=== PATIENT | male | born 1960 | race African-American/Black ===

== ENCOUNTER 2017-01-16 15:36 | Emergency (ER) | payer MEDICAID ==
[~2017-01-16] VITALS: Ht 172.7 cm; Wt 70.0 kg
[2017-01-16 20:15] VITALS: BP 124/74
== END 2017-01-16 20:43 | disposition home or self-care (01) ==
LOC: ER 16:09
DX: F10.129 Alcohol abuse with intoxication, unspecified (principal); R56.9 Unspecified convulsions; Y90.9 Presence of alcohol in blood, level not specified; Z59.0 Homelessness
CPT/HCPCS: 99284

== ENCOUNTER 2019-08-21 11:25 | Emergency (ER) | payer MEDICAID ==
[~2019-08-21] VITALS: Ht 180.3 cm; Wt 77.1 kg
[2019-08-21] MEDS ORDERED: SODIUM CHLORIDE 0.9% 1,000 ML IV ONE (12:32)
[2019-08-21] MEDS ORDERED: ONDANSETRON HCL 4MG/2ML INJ IV STA (12:32)
[2019-08-21] MEDS ORDERED: KETOROLAC 30MG/ML VIAL IV STA (12:32)
[2019-08-21 13:39] LABS: CLARITY URINE TURBID (CLEAR); COLOR URINE ORANGE (YELLOW); KETONES URINE NEGATIVE (NEGATIVE); LEUKOCYTE ESTERASE URINE 1+ (NEGATIVE); NITRITE URINE POSITIVE (NEGATIVE); OCCULT BLOOD URINE TRACE (NEGATIVE); PH URINE 5.5 (4.5-8.0); PROTEIN URINE 3+ (NEGATIVE); SPECIFIC GRAVITY URINE 1.031 (1.005-1.030)
[2019-08-21 14:06] LABS: *AMPHETAMINES SCREEN URINE NEGATIVE (NEGATIVE)
[2019-08-21 14:07] LABS: *BARBITURATES SCREEN URINE NEGATIVE (NEGATIVE); *BENZODIAZEPINES SCREEN URINE NEGATIVE (NEGATIVE); *COCAINE SCREEN URINE NEGATIVE (NEGATIVE); METHADONE URINE SCREEN NEGATIVE (NEGATIVE); OPIATES URINE SCREEN NEGATIVE (NEGATIVE); PHENCYCLIDINE URINE SCREEN NEGATIVE (NEGATIVE)
[2019-08-21 14:08] LABS: CANNABINOID URINE SCREEN NEGATIVE (NEGATIVE)
[2019-08-21 15:06] LABS: BASOPHILS % 0.6 % (0.0-2.0); EOSINOPHILS % 0.7 % (0.0-5.0); HEMATOCRIT. 37.1 % (42.0-52.0); HEMOGLOBIN. 12.3 g/dL (14.0-18.0); LYMPHOCYTES % 10.5 % (20.0-50.0); MEAN CORPUSCULAR HEMOGLOBIN 31.3 pg (28.0-32.0); MEAN CORPUSCULAR VOLUME 94.2 fL (80.0-94.0); MEAN PLATELET VOLUME 11.7 fl (7.4-10.4); MONOCYTES % 12.1 % (2.0-8.0); NEUTROPHILS % 76.1 % (40.0-76.0); PLATELET 97 x1000/uL (130-400); RED BLOOD CELL COUNT 3.93 mill/uL (4.7-6.1); RED CELL DISTRIBUTION WIDTH 11.2 % (11.6-14.6)
[2019-08-21 15:18] LABS: CHLORIDE 103 mEq/L (98-107)
[2019-08-21 15:22] LABS: ETHANOL BLOOD < 10 mg/dL
[2019-08-21] MEDS ORDERED: POTASSIUM CHLORIDE 20MEQ TABLET SR PO ONE (16:00)
[2019-08-21 16:52] VITALS: BP 132/74
== END 2019-08-21 16:53 | disposition home or self-care (01) ==
LOC: ER 11:25
DX: R41.82 Altered mental status, unspecified (principal)
CPT/HCPCS: 36415; 70450; 80053; 80305; 80320; 81003; 82962; 85025; 96361; 96374; 96375; 99284; J1885; J2405; J7030; G0480

== ENCOUNTER 2019-08-21 18:53 | Inpatient (IN) | payer MEDICAID ==
[~2019-08-21] VITALS: Ht 177.8 cm; Wt 72.6 kg
[2019-08-21] MEDS ORDERED: SODIUM CHLORIDE 0.9% 1,000 ML IV ONE (19:40)
[2019-08-21] MEDS ORDERED: LEVETIRACETAM 1000MG/100ML 100 ML IV ONE (19:45)
[2019-08-21] MEDS ORDERED: LORAZEPAM 2MG/ML CPJ IV ONE ×2 (19:45→23:00)
[2019-08-21 20:12] LABS: HEMATOCRIT. 36.4 % (42.0-52.0); HEMOGLOBIN. 11.9 g/dL (14.0-18.0); MEAN CORPUSCULAR HEMOGLOBIN 30.9 pg (28.0-32.0); MEAN CORPUSCULAR VOLUME 94.3 fL (80.0-94.0); MEAN PLATELET VOLUME 10.4 fl (7.4-10.4); PLATELET 85 x1000/uL (130-400); RED BLOOD CELL COUNT 3.86 mill/uL (4.7-6.1); RED CELL DISTRIBUTION WIDTH 11.3 % (11.6-14.6)
[2019-08-21 20:14] LABS: CHLORIDE 100 mEq/L (98-107); INR 1.1; PROTHROMBIN TIME 11.2 sec (9.6-11.0)
[2019-08-21 20:20] LABS: ETHANOL BLOOD < 10 mg/dL
[2019-08-21 20:23] LABS: CARBAMAZEPINE < 0.5 ug/mL (4-12)
[2019-08-21 20:24] LABS: CREATINE KINASE 306 IU/L (39-308)
[2019-08-21 20:26] LABS: CREATINE KINASE MB FRACTION 2.9 ng/mL (0.5-3.6)
[2019-08-21 20:33] LABS: PHENOBARBITAL < 2.1 ug/mL (15.0-40.0); VALPROIC ACID < 3.0 ug/mL (50-100)
[2019-08-21 20:44] LABS: PLATELET ESTIMATE MARKEDLY DECREASED
[2019-08-21] MEDS ORDERED: FOLIC ACID 1 MG, THIAMINE HCL 100 MG, MVI, ADULT NO.1 10 ML in DEXTROSE 5% WATER 1,000 ML IV ONE ×4 (23:00)
[2019-08-22 00:20] LABS: CLARITY URINE CLEAR (CLEAR); COLOR URINE YELLOW (YELLOW); KETONES URINE NEGATIVE (NEGATIVE); LEUKOCYTE ESTERASE URINE NEGATIVE (NEGATIVE); NITRITE URINE NEGATIVE (NEGATIVE); OCCULT BLOOD URINE NEGATIVE (NEGATIVE); PROTEIN URINE NEGATIVE (NEGATIVE); SPECIFIC GRAVITY URINE 1.004 (1.005-1.030); UROBILINOGEN URINE 0.2 E.U./dL (0.2-1.0)
[2019-08-22 00:41] LABS: *AMPHETAMINES SCREEN URINE NEGATIVE (NEGATIVE); *BARBITURATES SCREEN URINE NEGATIVE (NEGATIVE); *BENZODIAZEPINES SCREEN URINE NEGATIVE (NEGATIVE); *COCAINE SCREEN URINE NEGATIVE (NEGATIVE); METHADONE URINE SCREEN NEGATIVE (NEGATIVE); OPIATES URINE SCREEN NEGATIVE (NEGATIVE); PHENCYCLIDINE URINE SCREEN NEGATIVE (NEGATIVE)
[2019-08-22 00:42] LABS: CANNABINOID URINE SCREEN NEGATIVE (NEGATIVE)
[2019-08-22] MEDS ORDERED: LORAZEPAM 2MG/ML CPJ IV ONE (00:45)
[2019-08-22] MEDS ORDERED: ONDANSETRON HCL 4MG/2ML INJ IV ONE (00:45)
[2019-08-22] MEDS ORDERED: THIAMINE HCL 100 MG/1 ML 2ML VIAL ONE (01:01)
[2019-08-22] MEDS ORDERED: LORAZEPAM 2MG/ML CPJ IV PRN ×2 (02:00→07:45)
[2019-08-22] MEDS ORDERED: DIPHENHYDRAMINE 50MG/ML VIAL IV PRN (07:45)
[2019-08-22] MEDS ORDERED: CLONIDINE 0.1MG TABLET PO PRN (07:45)
[2019-08-22] MEDS ORDERED: ACETAMINOPHEN 325MG TABLET PO PRN (07:45)
[2019-08-22] MEDS ORDERED: GUAIFENESIN 200MG/10ML SUGAR FREE UDC PO PRN (07:45)
[2019-08-22] MEDS ORDERED: IPRATROPIUM/ALBUTEROL 0.5-3(2.5)MG/3ML NEB HHN PRN (07:45)
[2019-08-22] MEDS ORDERED: ONDANSETRON HCL 4MG/2ML INJ IV PRN (07:45)
[2019-08-22] MEDS ORDERED: LEVETIRACETAM 500MG PREMIX 100 ML IV NR (08:45)
[2019-08-22] MEDS ORDERED: POTASSIUM CHLORIDE INJ 40 MEQ in DEXT 5% WATER 250 ML IV NR (10:15)
[2019-08-22 12:00] VITALS: BP_SYST 133; BP_SYST 135; BP_DIAS 62; BP_DIAS 88
[2019-08-22] MEDS: CHLORDIAZEPOXIDE 25MG CAPSULE PO SCH ×2 (14:57→21:33)
[2019-08-22] MEDS ORDERED: INFLUENZA VIRUS VACCINE(AFLURIA) 0.5ML SYR IM ONE (15:30)
[2019-08-22] MEDS ORDERED: PNEUMOCOCCAL 23-VAL P-SAC VAC 0.5 ML IM ONE (15:30)
[2019-08-22 16:00] VITALS: BP 140/86
[2019-08-22 16:54] LABS: PHOSPHORUS 2.6 mg/dL (2.5-4.9)
[2019-08-22 20:00] VITALS: BP 146/85
[2019-08-22 20:01] LABS: TOTAL IRON BINDING CAPACITY 367 ug/dL (250-450)
[2019-08-22] MEDS: LEVETIRACETAM 500MG PREMIX 100 ML IV SCH (21:33)
[2019-08-23] VITALS: BP 130/82
[2019-08-23 04:00] VITALS: BP 151/90
[2019-08-23 05:38] LABS: BASOPHILS % 0.4 % (0.0-2.0); EOSINOPHILS % 1.1 % (0.0-5.0); HEMOGLOBIN. 11.6 g/dL (14.0-18.0); LYMPHOCYTES % 10.9 % (20.0-50.0); MEAN CORPUSCULAR HEMOGLOBIN 31.1 pg (28.0-32.0); MEAN CORPUSCULAR VOLUME 93.6 fL (80.0-94.0); MEAN PLATELET VOLUME 11.3 fl (7.4-10.4); MONOCYTES % 13.3 % (2.0-8.0); NEUTROPHILS % 74.3 % (40.0-76.0); PLATELET 100 x1000/uL (130-400); RED BLOOD CELL COUNT 3.74 mill/uL (4.7-6.1); RED CELL DISTRIBUTION WIDTH 11.4 % (11.6-14.6)
[2019-08-23] MEDS: CHLORDIAZEPOXIDE 25MG CAPSULE PO SCH ×3 (05:42→21:43)
[2019-08-23 06:02] LABS: CHLORIDE 102 mEq/L (98-107)
[2019-08-23 06:11] LABS: LDL CHOLESTEROL 30 mg/dL (5-100)
[2019-08-23 06:13] LABS: HDL CHOLESTEROL 70 mg/dL (40-59)
[2019-08-23 08:00] VITALS: BP 133/89
[2019-08-23] MEDS ORDERED: ENOXAPARIN 40MG/0.4ML SYR SUBCUT SCH (09:00)
[2019-08-23] MEDS: SODIUM CHLORIDE 0.9% 1,000 ML IV SCH ×2 (09:35→17:40)
[2019-08-23] MEDS: LEVETIRACETAM 500MG PREMIX 100 ML IV SCH ×2 (09:54→21:41)
[2019-08-23 12:00] VITALS: BP 118/76
[2019-08-23 16:00] VITALS: BP 150/92
[2019-08-23 20:00] VITALS: BP 143/91
[2019-08-24] VITALS: BP 144/93
[2019-08-24] MEDS: SODIUM CHLORIDE 0.9% 1,000 ML IV SCH ×3 (00:39→16:45)
[2019-08-24 04:00] VITALS: BP 134/72
[2019-08-24] MEDS: CHLORDIAZEPOXIDE 25MG CAPSULE PO SCH ×2 (06:16→13:44)
[2019-08-24 08:00] VITALS: BP 155/92
[2019-08-24] MEDS: LEVETIRACETAM 500MG PREMIX 100 ML IV SCH (08:05)
[2019-08-24 12:00] VITALS: BP 128/83
[2019-08-24 16:00] VITALS: BP 132/83
[2019-08-24] MEDS ORDERED: FOLIC ACID 1MG TABLET PO SCH (16:00)
[2019-08-24] MEDS ORDERED: MULTIVITAMINS,THER W-MINERALS TABLET PO SCH (16:00)
[2019-08-24] MEDS ORDERED: THIAMINE HCL 100MG TABLET PO SCH (16:00)
== END 2019-08-24 18:16 | disposition left against medical advice (07) | DRG 53 ==
LOC: ER 18:53 → 5WST 08-22 01:42 → EDBEDREQTM 08-22 01:44 → EDBEDREQ 08-22 01:44 → ENRESERV 08-22 11:12
PROVIDERS: ADMIT Internal Medicine; ATTEND Internal Medicine
DX: G40.909 Epilepsy, unspecified, not intractable, without status epilepticus (principal); D69.6 Thrombocytopenia, unspecified; D64.9 Anemia, unspecified; E87.6 Hypokalemia; R74.0 Nonspecific elevation of levels of transaminase and lactic acid dehydrogenase [LDH]; F10.10 Alcohol abuse, uncomplicated; I10 Essential (primary) hypertension; E83.51 Hypocalcemia
CPT/HCPCS: 36415; 71045; 80053; 80061; 80156; 80165; 80184; 80185; 80305; 80320; 81003; 82550; 82553; 82728; 83540; 83550; 83735; 84100; 84443; 84484; 85025; 90686; 90732; 93005; 93970; 96365; 99285; J1953; J2060; J2405; J3411; J3480; J3490; J7030; J7060; J7070; A4315; G0480

== ENCOUNTER 2019-10-02 17:21 | Emergency (ER) | payer MEDICAID ==
[~2019-10-02] VITALS: Ht 167.6 cm; Wt 50.0 kg
[2019-10-02] MEDS ORDERED: SODIUM CHLORIDE 0.9% 1,000 ML IV ONE (17:58)
[2019-10-02] MEDS ORDERED: LEVETIRACETAM 1000MG/100ML 100 ML IV ONE (18:00)
[2019-10-02] MEDS ORDERED: LORAZEPAM 2MG/ML CPJ IV ONE (18:00)
[2019-10-02 18:20] LABS: BASOPHILS % 0.6 % (0.0-2.0); CHLORIDE 96 mEq/L (98-107); EOSINOPHILS % 0.6 % (0.0-5.0); HEMOGLOBIN. 11.4 g/dL (14.0-18.0); LYMPHOCYTES % 15.5 % (20.0-50.0); MEAN CORPUSCULAR HEMOGLOBIN 29.7 pg (28.0-32.0); MEAN CORPUSCULAR VOLUME 88.6 fL (80.0-94.0); MEAN PLATELET VOLUME 9.5 fl (7.4-10.4); MONOCYTES % 11.3 % (2.0-8.0); PLATELET 78 x1000/uL (130-400); RED BLOOD CELL COUNT 3.84 mill/uL (4.7-6.1); RED CELL DISTRIBUTION WIDTH 13.5 % (11.6-14.6)
[2019-10-02 18:25] LABS: ETHANOL BLOOD < 10 mg/dL
[2019-10-02 18:29] LABS: CREATINE KINASE 193 IU/L (39-308)
[2019-10-02 18:34] LABS: CARBAMAZEPINE < 0.5 ug/mL (4-12); PHENOBARBITAL < 2.1 ug/mL (15.0-40.0); VALPROIC ACID < 3.0 ug/mL (50-100)
[2019-10-02 21:45] VITALS: BP 138/80
== END 2019-10-02 21:45 | disposition home or self-care (01) ==
LOC: ER 17:21
DX: R56.9 Unspecified convulsions (principal); E86.0 Dehydration; F10.239 Alcohol dependence with withdrawal, unspecified; Y90.0 Blood alcohol level of less than 20 mg/100 ml
CPT/HCPCS: 36415; 80053; 80156; 80165; 80184; 80185; 80320; 82550; 84443; 84484; 85025; 93005; 96365; 96375; 99285; J1953; J2060; J7030; G0480

== ENCOUNTER 2020-02-17 20:10 | Inpatient (IN) | payer MEDICAID ==
[~2020-02-17] VITALS: Ht 177.8 cm; Wt 55.3 kg
[2020-02-17] MEDS ORDERED: SODIUM CHLORIDE 0.9% 1,000 ML IV ONE (21:27)
[2020-02-17 21:43] LABS: CHLORIDE 103 mEq/L (98-107)
[2020-02-17 21:59] LABS: ETHANOL BLOOD 463 mg/dL
[2020-02-17 23:14] LABS: BASOPHILS % 1.2 % (0.0-2.0); EOSINOPHILS % 0.7 % (0.0-5.0); HEMOGLOBIN. 10.3 g/dL (14.0-18.0); LYMPHOCYTES % 20.9 % (20.0-50.0); MEAN CORPUSCULAR VOLUME 83.6 fL (80.0-94.0); MEAN PLATELET VOLUME 8.2 fl (7.4-10.4); NEUTROPHILS % 71.2 % (40.0-76.0); PLATELET 188 x1000/uL (130-400); RED BLOOD CELL COUNT 3.83 mill/uL (4.7-6.1); RED CELL DISTRIBUTION WIDTH 19.7 % (11.6-14.6)
[2020-02-18 00:02] LABS: CLARITY URINE CLEAR (CLEAR); COLOR URINE YELLOW (YELLOW); KETONES URINE NEGATIVE (NEGATIVE); LEUKOCYTE ESTERASE URINE NEGATIVE (NEGATIVE); NITRITE URINE NEGATIVE (NEGATIVE); OCCULT BLOOD URINE NEGATIVE (NEGATIVE); PROTEIN URINE NEGATIVE (NEGATIVE); SPECIFIC GRAVITY URINE 1.012 (1.005-1.030); UROBILINOGEN URINE 0.2 E.U./dL (0.2-1.0)
[2020-02-18 00:29] LABS: *AMPHETAMINES SCREEN URINE NEGATIVE (NEGATIVE); *BARBITURATES SCREEN URINE NEGATIVE (NEGATIVE); *BENZODIAZEPINES SCREEN URINE NEGATIVE (NEGATIVE); *COCAINE SCREEN URINE NEGATIVE (NEGATIVE); METHADONE URINE SCREEN NEGATIVE (NEGATIVE)
[2020-02-18 00:30] LABS: CANNABINOID URINE SCREEN NEGATIVE (NEGATIVE); OPIATES URINE SCREEN NEGATIVE (NEGATIVE); PHENCYCLIDINE URINE SCREEN NEGATIVE (NEGATIVE)
[2020-02-18 03:40] VITALS: BP 145/80
[2020-02-18 04:00] VITALS: BP 145/80
[2020-02-18] MEDS ORDERED: ONDANSETRON HCL 4MG/2ML INJ IV PRN (05:15)
[2020-02-18] MEDS ORDERED: ACETAMINOPHEN 325MG TABLET PO PRN (05:15)
[2020-02-18] MEDS ORDERED: LORAZEPAM 2MG/ML CPJ IV PRN (05:15)
[2020-02-18] MEDS: DEXT 5%/0.45% NACL 1000ML 1,000 ML IV SCH ×2 (05:55→15:57)
[2020-02-18] MEDS: CHLORDIAZEPOXIDE 25MG CAPSULE PO SCH ×3 (05:55→21:32)
[2020-02-18 07:50] VITALS: BP 138/81
[2020-02-18] MEDS: FAMOTIDINE 20MG TABLET PO SCH ×2 (08:18→21:32)
[2020-02-18] MEDS: FOLIC ACID 1MG TABLET PO SCH (08:18)
[2020-02-18] MEDS: MULTIVITAMINS,THER W-MINERALS TABLET PO SCH (08:18)
[2020-02-18] MEDS: THIAMINE HCL 100MG TABLET PO SCH (08:20)
[2020-02-18 12:00] VITALS: BP 135/80
[2020-02-18] MEDS ORDERED: METOPROLOL TARTRATE 50MG TABLET PO NR (14:15)
[2020-02-18 20:00] VITALS: BP 138/80
[2020-02-18] MEDS: METOPROLOL TARTRATE 50MG TABLET PO SCH (21:32)
[2020-02-19] VITALS: BP 141/79
[2020-02-19] MEDS: DEXT 5%/0.45% NACL 1000ML 1,000 ML IV SCH ×2 (01:19→12:00)
[2020-02-19 04:00] VITALS: BP 142/80
[2020-02-19] MEDS: CHLORDIAZEPOXIDE 25MG CAPSULE PO SCH ×2 (05:38→14:06)
[2020-02-19 06:56] LABS: BASOPHILS % 0.9 % (0.0-2.0); EOSINOPHILS % 1.1 % (0.0-5.0); HEMATOCRIT. 34.5 % (42.0-52.0); HEMOGLOBIN. 11.2 g/dL (14.0-18.0); LYMPHOCYTES % 14.5 % (20.0-50.0); MEAN CORPUSCULAR HEMOGLOBIN 27.3 pg (28.0-32.0); MEAN CORPUSCULAR VOLUME 84.1 fL (80.0-94.0); MEAN PLATELET VOLUME 9.5 fl (7.4-10.4); MONOCYTES % 5.4 % (2.0-8.0); NEUTROPHILS % 78.1 % (40.0-76.0); PLATELET 176 x1000/uL (130-400)
[2020-02-19 07:11] LABS: CHLORIDE 98 mEq/L (98-107)
[2020-02-19 07:28] LABS: PHOSPHORUS 3.6 mg/dL (2.5-4.9)
[2020-02-19 08:00] VITALS: BP 145/86
[2020-02-19] MEDS: FAMOTIDINE 20MG TABLET PO SCH (08:08)
[2020-02-19] MEDS: METOPROLOL TARTRATE 50MG TABLET PO SCH (08:09)
[2020-02-19] MEDS: MULTIVITAMINS,THER W-MINERALS TABLET PO SCH (08:09)
[2020-02-19] MEDS: FOLIC ACID 1MG TABLET PO SCH (08:09)
[2020-02-19] MEDS: THIAMINE HCL 100MG TABLET PO SCH (08:09)
[2020-02-19 12:00] VITALS: BP 130/78
[2020-02-19 16:51] VITALS: BP 135/85
[2020-02-19 17:29] VITALS: BP 135/85
== END 2020-02-19 18:15 | disposition home or self-care (01) | DRG 775 ==
LOC: ER 20:10 → 8WST 02-18 00:49 → EDBEDREQDT 02-18 00:50 → EDBEDREQTM 02-18 00:50 → EDBEDREQ 02-18 00:50 → ENRESERV 02-18 02:26 → CANRESERV 02-18 02:26 → ENRESERV 02-18 02:57 → 8WST 02-18 04:44
PROVIDERS: ADMIT Internal Medicine; ATTEND Internal Medicine
DX: F10.229 Alcohol dependence with intoxication, unspecified (principal); F10.239 Alcohol dependence with withdrawal, unspecified; Y90.8 Blood alcohol level of 240 mg/100 ml or more; D64.9 Anemia, unspecified; L89.890 Pressure ulcer of other site, unstageable; E87.2 Acidosis; L89.106 Pressure-induced deep tissue damage of unspecified part of back; F17.210 Nicotine dependence, cigarettes, uncomplicated; F17.200 Nicotine dependence, unspecified, uncomplicated; G40.909 Epilepsy, unspecified, not intractable, without status epilepticus; Y93.01 Activity, walking, marching and hiking; Z82.49 Family history of ischemic heart disease and other diseases of the circulatory system; Z59.0 Homelessness
CPT/HCPCS: 36415; 71045; 80048; 80053; 80305; 80320; 81003; 82040; 83605; 83735; 84100; 84134; 84484; 85025; 93005; 93923; 99285; J7030; G0480

== ENCOUNTER 2020-03-08 23:15 | Inpatient (IN) | payer MEDICAID ==
[~2020-03-08] VITALS: Ht 182.9 cm; Wt 49.5 kg
[2020-03-08] MEDS ORDERED: SODIUM CHLORIDE 0.9% 1,000 ML IV ONE (23:27)
[2020-03-08] MEDS ORDERED: TETANUS, DIPHTHERIA, PERTUSSIS VAC/PF 0.5ML (>7YR OLD) IM ONE (23:30)
[2020-03-08] MEDS ORDERED: LIDOCAINE HCL/PF 1% 10 MG/ML 5ML VIAL IJ ONE (23:30)
[2020-03-08] MEDS ORDERED: BACITRACIN ZINC OINT UDPKT TOP ONE (23:30)
[2020-03-08] MEDS ORDERED: ONDANSETRON HCL 4MG/2ML INJ IV ONE (23:30)
[2020-03-09] VITALS (9 sets, daily range): BP systolic 128–153; BP diastolic 76–100
[2020-03-09] MEDS ORDERED: PIPERACILLIN/TAZ 3.375G PREMIX 50 ML IV ONE
[2020-03-09] MEDS ORDERED: VANCOMYCIN 1 G PREMIX 200 ML IV ONE
[2020-03-09 00:03] LABS: BASOPHILS % 2.4 % (0.0-2.0); EOSINOPHILS % 5.3 % (0.0-5.0); HEMATOCRIT. 35.8 % (42.0-52.0); HEMOGLOBIN. 11.6 g/dL (14.0-18.0); LYMPHOCYTES % 34.6 % (20.0-50.0); MEAN CORPUSCULAR VOLUME 86.7 fL (80.0-94.0); MEAN PLATELET VOLUME 8.3 fl (7.4-10.4); MONOCYTES % 5.8 % (2.0-8.0); NEUTROPHILS % 51.9 % (40.0-76.0); PLATELET 282 x1000/uL (130-400); RED BLOOD CELL COUNT 4.13 mill/uL (4.7-6.1); RED CELL DISTRIBUTION WIDTH 18.9 % (11.6-14.6)
[2020-03-09 00:09] LABS: CHLORIDE 106 mEq/L (98-107)
[2020-03-09 00:19] LABS: VALPROIC ACID <3.0 ug/mL ug/mL (50-100)
[2020-03-09 00:28] LABS: CARBAMAZEPINE < 0.5 ug/mL (4-12); PHENOBARBITAL < 2.1 ug/mL (15.0-40.0)
[2020-03-09 00:29] LABS: ETHANOL BLOOD 490 mg/dL
[2020-03-09] MEDS ORDERED: KCL 10MEQ/50ML PREMIX 50 ML IV ONE (00:45)
[2020-03-09] MEDS ORDERED: SODIUM CHLORIDE 0.9% 1000ML BAG (SEPSIS BOLUS) IV ONE (07:30)
[2020-03-09] MEDS ORDERED: ONDANSETRON HCL 4MG/2ML INJ IV PRN (10:30)
[2020-03-09] MEDS ORDERED: LORAZEPAM 2MG/ML CPJ IV PRN (10:30)
[2020-03-09] MEDS ORDERED: FOLIC ACID 1 MG, THIAMINE HCL 100 MG, MVI, ADULT NO.1 10 ML in DEXTROSE 5% WATER 1,000 ML IV NR ×4 (12:00)
[2020-03-09] MEDS: CHLORDIAZEPOXIDE 25MG CAPSULE PO SCH ×2 (13:14→20:45)
[2020-03-10] VITALS (9 sets, daily range): BP systolic 136–153; BP diastolic 83–96
[2020-03-10 01:02] LABS: CLARITY URINE CLEAR (CLEAR); COLOR URINE YELLOW (YELLOW); KETONES URINE NEGATIVE (NEGATIVE); LEUKOCYTE ESTERASE URINE NEGATIVE (NEGATIVE); NITRITE URINE NEGATIVE (NEGATIVE); OCCULT BLOOD URINE NEGATIVE (NEGATIVE); PROTEIN URINE NEGATIVE (NEGATIVE); SPECIFIC GRAVITY URINE 1.017 (1.005-1.030); UROBILINOGEN URINE 0.2 E.U./dL (0.2-1.0)
[2020-03-10] MEDS: CHLORDIAZEPOXIDE 25MG CAPSULE PO SCH ×3 (06:21→21:08)
[2020-03-10 07:11] LABS: BASOPHILS % 1.7 % (0.0-2.0); EOSINOPHILS % 4.8 % (0.0-5.0); HEMATOCRIT. 31.5 % (42.0-52.0); HEMOGLOBIN. 10.2 g/dL (14.0-18.0); MEAN CORPUSCULAR HEMOGLOBIN 28.2 pg (28.0-32.0); MEAN CORPUSCULAR VOLUME 87.1 fL (80.0-94.0); MEAN PLATELET VOLUME 9.2 fl (7.4-10.4); MONOCYTES % 6.3 % (2.0-8.0); NEUTROPHILS % 67.2 % (40.0-76.0); PLATELET 178 x1000/uL (130-400); RED BLOOD CELL COUNT 3.61 mill/uL (4.7-6.1); RED CELL DISTRIBUTION WIDTH 18.7 % (11.6-14.6)
[2020-03-10 07:27] LABS: CHLORIDE 102 mEq/L (98-107)
[2020-03-10 07:41] LABS: PHOSPHORUS 3.1 mg/dL (2.5-4.9)
[2020-03-10] MEDS ORDERED: MAGNESIUM 4 G PREMIX 100 ML IV NR (14:00)
[2020-03-11] VITALS (12 sets, daily range): BP systolic 129–163; BP diastolic 69–114
[2020-03-11 04:07] LABS: HIV SCREEN 4G Non Reactive (Non Reactive)
[2020-03-11] MEDS: CHLORDIAZEPOXIDE 25MG CAPSULE PO SCH ×3 (05:00→21:16)
[2020-03-12] VITALS (9 sets, daily range): BP systolic 133–149; BP diastolic 86–104
[2020-03-12] MEDS: CHLORDIAZEPOXIDE 25MG CAPSULE PO SCH ×2 (06:03→13:40)
== END 2020-03-12 15:01 | DRG 775 ==
LOC: ER 23:34 → EDBEDREQ 03-09 00:09 → 5EST 03-09 01:16 → EDBEDREQTM 03-09 01:28 → EDBEDREQ 03-09 01:28 → ENRESERV 03-09 07:29 → ER 03-09 07:44
PROVIDERS: ADMIT Internal Medicine; ATTEND Internal Medicine
PROC: 0JQ13ZZ Repair Face Subcutaneous Tissue and Fascia, Percutaneous Approach (ICD-10-PCS; principal; 2020-03-09)
DX: F10.229 Alcohol dependence with intoxication, unspecified (principal); E44.0 Moderate protein-calorie malnutrition; D64.9 Anemia, unspecified; E87.6 Hypokalemia; E83.42 Hypomagnesemia; E87.2 Acidosis; G40.909 Epilepsy, unspecified, not intractable, without status epilepticus; L89.890 Pressure ulcer of other site, unstageable; Y90.8 Blood alcohol level of 240 mg/100 ml or more; Z20.828 Contact with and (suspected) exposure to other viral communicable diseases; S01.81XA Laceration without foreign body of other part of head, initial encounter; Z82.49 Family history of ischemic heart disease and other diseases of the circulatory system; Z68.1 Body mass index [BMI] 19.9 or less, adult; Z79.899 Other long term (current) drug therapy
CPT/HCPCS: 36415; 71045; 73560; 80048; 80053; 80156; 80165; 80184; 80185; 80320; 81003; 82378; 83605; 83735; 83880; 84100; 84484; 85025; 87389; 90715; 93005; 99291; J2405; J2543; J3370; J3411; J3475; J3480; J3490; J7030; J7070; G0480; U0003-CS

== ENCOUNTER 2020-07-21 07:00 | Inpatient (IN) | payer MEDICAID, OTHER ==
[~2020-07-21] VITALS: Ht 177.8 cm; Wt 56.0 kg
[2020-07-21 07:40] LABS: BASOPHILS % 0.9 % (0.0-2.0); EOSINOPHILS % 0.1 % (0.0-5.0); HEMATOCRIT. 36.6 % (42.0-52.0); HEMOGLOBIN. 11.8 g/dL (14.0-18.0); LYMPHOCYTES % 26.2 % (20.0-50.0); MEAN CORPUSCULAR HEMOGLOBIN 26.7 pg (28.0-32.0); MEAN CORPUSCULAR VOLUME 83.3 fL (80.0-94.0); MEAN PLATELET VOLUME 9.1 fl (7.4-10.4); MONOCYTES % 4.4 % (2.0-8.0); NEUTROPHILS % 68.4 % (40.0-76.0); PLATELET 134 x1000/uL (130-400); RED CELL DISTRIBUTION WIDTH 17.3 % (11.6-14.6)
[2020-07-21 07:45] LABS: CHLORIDE 105 mEq/L (98-107)
[2020-07-21 07:59] LABS: PHENOBARBITAL < 2.1 ug/mL (15.0-40.0)
[2020-07-21 08:00] LABS: ETHANOL BLOOD 550 mg/dL
[2020-07-21 08:01] LABS: CARBAMAZEPINE < 0.5 ug/mL (4-12); VALPROIC ACID < 3.0 ug/mL (50-100)
[2020-07-21 09:43] LABS: CLARITY URINE CLEAR (CLEAR); COLOR URINE YELLOW (YELLOW); KETONES URINE 2+ (NEGATIVE); LEUKOCYTE ESTERASE URINE NEGATIVE (NEGATIVE); NITRITE URINE NEGATIVE (NEGATIVE); OCCULT BLOOD URINE 1+ (NEGATIVE); PROTEIN URINE 1+ (NEGATIVE); SPECIFIC GRAVITY URINE 1.019 (1.005-1.030); UROBILINOGEN URINE 0.2 E.U./dL (0.2-1.0)
[2020-07-21] MEDS ORDERED: LIDOCAINE 1%/EPI 1:100,000 10 ML VIAL IJ ONE (09:45)
[2020-07-21 10:00] LABS: *AMPHETAMINES SCREEN URINE NEGATIVE (NEGATIVE); *BARBITURATES SCREEN URINE NEGATIVE (NEGATIVE); *BENZODIAZEPINES SCREEN URINE NEGATIVE (NEGATIVE); *COCAINE SCREEN URINE NEGATIVE (NEGATIVE); METHADONE URINE SCREEN NEGATIVE (NEGATIVE); OPIATES URINE SCREEN NEGATIVE (NEGATIVE)
[2020-07-21] MEDS ORDERED: LIDOCAINE HCL/EPINEPHRINE 1%-EPI 1:100,000 20 ML VIAL INFIL NR (10:00)
[2020-07-21 10:02] LABS: CANNABINOID URINE SCREEN NEGATIVE (NEGATIVE); PHENCYCLIDINE URINE SCREEN NEGATIVE (NEGATIVE)
[2020-07-21] MEDS ORDERED: LACTULOSE 20G/30ML UDC PO ONE (10:15)
[2020-07-21] MEDS ORDERED: ONDANSETRON HCL 4MG/2ML INJ IV PRN (11:00)
[2020-07-21] MEDS ORDERED: ACETAMINOPHEN 325MG TABLET PO PRN (11:00)
[2020-07-21] MEDS: FOLIC ACID 1 MG, THIAMINE HCL 100 MG, MVI, ADULT NO.1 10 ML in DEXTROSE 5% WATER 1,000 ML IV SCH ×4 (12:08)
[2020-07-21] MEDS: LACTULOSE 20G/30ML UDC PO SCH ×2 (14:51→22:28)
[2020-07-21 23:48] VITALS: BP 145/91
[2020-07-22] VITALS (12 sets, daily range): BP systolic 142–156; BP diastolic 57–89
[2020-07-22] MEDS: LACTULOSE 20G/30ML UDC PO SCH ×3 (06:01→21:16)
[2020-07-22 08:11] LABS: BASOPHILS % 0.6 % (0.0-2.0); EOSINOPHILS % 0.5 % (0.0-5.0); HEMATOCRIT. 30.9 % (42.0-52.0); HEMOGLOBIN. 10.1 g/dL (14.0-18.0); LYMPHOCYTES % 15.9 % (20.0-50.0); MEAN CORPUSCULAR HEMOGLOBIN 26.5 pg (28.0-32.0); MEAN CORPUSCULAR VOLUME 80.7 fL (80.0-94.0); MEAN PLATELET VOLUME 10.1 fl (7.4-10.4); MONOCYTES % 7.4 % (2.0-8.0); NEUTROPHILS % 75.6 % (40.0-76.0); PLATELET 76 x1000/uL (130-400); RED BLOOD CELL COUNT 3.83 mill/uL (4.7-6.1); RED CELL DISTRIBUTION WIDTH 17.4 % (11.6-14.6)
[2020-07-22 08:34] LABS: CHLORIDE 101 mEq/L (98-107)
[2020-07-22] MEDS ORDERED: THIA100T88 MT (11:56)
[2020-07-22] MEDS ORDERED: LACT10SO7 MT (11:56)
[2020-07-22] MEDS ORDERED: CHLO25CA10 MT (11:57)
[2020-07-22] MEDS: FOLIC ACID 1 MG, THIAMINE HCL 100 MG, MVI, ADULT NO.1 10 ML in DEXTROSE 5% WATER 1,000 ML IV SCH ×4 (12:00)
[2020-07-22] MEDS: CHLORDIAZEPOXIDE 25MG CAPSULE PO SCH ×2 (13:12→21:17)
[2020-07-22] MEDS: PANTOPRAZOLE SODIUM 40 MG/VIAL IV SCH (13:12)
[2020-07-22 14:21] LABS: INR 1.2; PROTHROMBIN TIME 12.7 sec (9.6-11.0)
[2020-07-22 14:47] LABS: HEPATITIS B SURFACE ANTIGEN NEGATIVE
[2020-07-22 14:50] LABS: VITAMIN B12 SERUM 1622 pg/mL (211-911)
[2020-07-22] MEDS ORDERED: MAGNESIUM 2 G PREMIX 50 ML IV NR (15:00)
[2020-07-22 15:17] LABS: HEPATITIS A AB IGM NEGATIVE (NEGATIVE)
[2020-07-22] MEDS ORDERED: RIFAXIMIN 550 MG TABLET PO SCH (21:00)
[2020-07-23] VITALS (9 sets, daily range): BP systolic 123–143; BP diastolic 79–99
[2020-07-23] MEDS: LACTULOSE 20G/30ML UDC PO SCH ×2 (06:00→14:00)
[2020-07-23] MEDS: CHLORDIAZEPOXIDE 25MG CAPSULE PO SCH ×2 (06:05→14:25)
[2020-07-23] MEDS: PANTOPRAZOLE SODIUM 40 MG/VIAL IV SCH (08:39)
[2020-07-23] MEDS: FOLIC ACID 1 MG, THIAMINE HCL 100 MG, MVI, ADULT NO.1 10 ML in DEXTROSE 5% WATER 1,000 ML IV SCH ×4 (12:00)
== END 2020-07-23 15:55 | disposition home or self-care (01) | DRG 775 ==
LOC: ER 07:25 → 3WST 10:56 → ENRESERV 22:25 → 3WST 23:58
PROVIDERS: ADMIT Internal Medicine; ATTEND Internal Medicine
PROC: 0HQ0XZZ Repair Scalp Skin, External Approach (ICD-10-PCS; principal; 2020-07-21)
DX: F10.229 Alcohol dependence with intoxication, unspecified (principal); G92 Toxic encephalopathy; G40.909 Epilepsy, unspecified, not intractable, without status epilepticus; D69.6 Thrombocytopenia, unspecified; D64.9 Anemia, unspecified; E44.1 Mild protein-calorie malnutrition; K72.00 Acute and subacute hepatic failure without coma; S01.01XA Laceration without foreign body of scalp, initial encounter; Z60.2 Problems related to living alone; X58.XXXA Exposure to other specified factors, initial encounter; E72.20 Disorder of urea cycle metabolism, unspecified; K80.20 Calculus of gallbladder without cholecystitis without obstruction; Y90.8 Blood alcohol level of 240 mg/100 ml or more; Z59.0 Homelessness; Z68.1 Body mass index [BMI] 19.9 or less, adult; Y93.89 Activity, other specified; Y92.89 Other specified places as the place of occurrence of the external cause; Y99.8 Other external cause status; Z71.41 Alcohol abuse counseling and surveillance of alcoholic
CPT/HCPCS: 36415; 76700; 80053; 80076; 80156; 80165; 80184; 80185; 80305; 80320; 81003; 82140; 82607; 82746; 83735; 85025; 86705; 86709; 86803; 87340; 99285; C9113; J3411; J3475; J3490; J7070; G0480

== ENCOUNTER 2022-03-01 12:29 | Emergency (ER) | payer MEDICAID ==
[~2022-03-01] VITALS: Ht 180.3 cm; Wt 65.0 kg
[~2022-03-01 12:29] MED LIST: CHLO25CA10 MT; LACT10SO7 MT; THIA100T88 MT
[2022-03-01 12:34] VITALS: BP 122/69
[2022-03-01 15:19] LABS: BASOPHILS % 1.5 % (0.0-2.0); EOSINOPHILS % 1.8 % (0.0-5.0); HEMATOCRIT. 41.2 % (42.0-52.0); HEMOGLOBIN. 13.5 g/dL (14.0-18.0); LYMPHOCYTES % 32.4 % (20.0-50.0); MEAN CORPUSCULAR HEMOGLOBIN 28.9 pg (28.0-32.0); MEAN CORPUSCULAR VOLUME 88.3 fL (80.0-94.0); MEAN PLATELET VOLUME 9.2 fl (7.4-10.4); MONOCYTES % 7.6 % (2.0-8.0); NEUTROPHILS % 56.7 % (40.0-76.0); PLATELET 187 x1000/uL (130-400); RED BLOOD CELL COUNT 4.67 mill/uL (4.7-6.1); RED CELL DISTRIBUTION WIDTH 12.5 % (11.6-14.6)
[2022-03-01 15:25] LABS: CHLORIDE 98 mEq/L (98-107)
== END 2022-03-01 17:01 | disposition home or self-care (01) ==
LOC: ER 13:12
DX: F10.29 Alcohol dependence with unspecified alcohol-induced disorder (principal); Y90.9 Presence of alcohol in blood, level not specified; G40.909 Epilepsy, unspecified, not intractable, without status epilepticus
CPT/HCPCS: 36415; 80053; 85025; 99284